=== PATIENT | male | born 1980 | race Two or more races ===

== ENCOUNTER 2018-12-01 00:53 | Emergency (ER) | payer OTHER ==
[2018-12-01 02:54] LABS: ABSOLUTE LYMPHOCYTES (AUTO) 1.1 10^3/uL (0.5-4.7); ABSOLUTE MONOCYTES (AUTO) 0.5 10^3/uL (0.1-1.4); BASOPHILS % (AUTO) 0.6 % (0-2); EOSINOPHILS % (AUTO) 0.5 % (0-6); HEMATOCRIT 40.9 % (37.9-51.0); HEMOGLOBIN 14.3 g/dL (13.5-17.0); LYMPHOCYTES % (AUTO) 12.6 % (13-45); MEAN CORPUSCULAR HEMOGLOBIN 30.7 pg (27.0-33.4); MEAN CORPUSCULAR VOLUME 88 fl (80-97); MONOCYTES % (AUTO) 5.6 % (3-13); PLATELET COUNT 157 10^3/uL (150-450); RED BLOOD COUNT 4.67 10^6/uL (4.35-5.55); RED CELL DISTRIBUTION WIDTH 13.2 % (11.5-14.0); SEGMENTED NEUTROPHILS % (AUTO) 80.7 % (42-78); TOTAL CELLS COUNTED % (AUTO) 100 %; WHITE BLOOD COUNT 8.6 10^3/uL (4.0-10.5)
[2018-12-01 03:08] LABS: APPEARANCE,URINE CLEAR; BILIRUBIN,URINE NEGATIVE (NEGATIVE); COLOR,URINE YELLOW; GLUCOSE, URINE NEGATIVE (NEGATIVE); KETONES,URINE TRACE mg/dL (NEGATIVE); LEUKOCYTE ESTERASE,URINE NEGATIVE (NEGATIVE); NITRITE,URINE NEGATIVE (NEGATIVE); PROTEIN,URINE NEGATIVE (NEGATIVE); URINE SPECIFIC GRAVITY 1.024; UROBILINOGEN,URINE NEGATIVE mg/dL (<2.0)
[2018-12-01 03:14] LABS: ALBUMIN 4.3 g/dL (3.5-5.0); ALKALINE PHOSPHATASE 48 U/L (38-126); ANION GAP 7 (5-19); ASPARTATE AMINO TRANSFERASE 29 U/L (17-59); BILIRUBIN,DIRECT 0.1 mg/dL (0.0-0.4); BILIRUBIN,TOTAL 0.8 mg/dL (0.2-1.3); BLOOD UREA NITROGEN 17 mg/dL (7-20); CALCIUM 9.7 mg/dL (8.4-10.2); CARBON DIOXIDE 30 mmol/L (22-30); CHLORIDE 103 mmol/L (98-107); GLUCOSE 129 mg/dL (75-110); POTASSIUM 3.8 mmol/L (3.6-5.0); TOTAL PROTEIN 7.7 g/dL (6.3-8.2)
[2018-12-01] MEDS ORDERED: PANTOPRAZOLE SODIUM 40 MG VIAL IV ONE (03:57)
--- NOTE | 2018-12-01 04:55 | ER Document Report ---
ED General - General Chief Complaint: Epigastric Pain Stated Complaint: RIGHT SIDE ABDOMINAL PAIN Time Seen by Provider: 12/01/18 03:28 Primary Care Provider: [facility] [NO LOCAL MD] - Follow up as needed TRAVEL OUTSIDE OF THE [place] IN LAST 30 DAYS: No - HPI Notes: This is a 38-year-old gentleman who presents today with a complaint of epigastric and slight right upper quadrant pain that started this evening. Patient describes his pain as aching and burning. Pain started shortly after dinner about 2 hours prior. Associated symptoms include nausea but no vomiting. He denies any chest pain. He denies any diarrhea constipation. He describes his symptoms as moderate. There are no obvious aggravating or relieving factors. - Related Data Allergies/Adverse Reactions: No Known Allergies Allergy (Verified 12/01/18 02:27) Past Medical History - Social History Smoking Status: Never Smoker Frequency of alcohol use: Occasional Drug Abuse: None Family History: Reviewed & Not Pertinent Patient has suicidal ideation: No Patient has homicidal ideation: No Review of Systems - Review of Systems Cardiovascular: denies: Chest pain, Palpitations Gastrointestinal: Abdominal pain, Nausea. denies: Diarrhea, Vomiting, Constipation Neurological/Psychological: denies: Headaches -: Yes All other systems reviewed and negative Physical Exam - Vital signs Vitals: Temp Pulse Resp BP Pulse Ox 98.4 F 72 16 152/92 H 98 12/01/18 01:01 12/01/18 01:01 12/01/18 01:01 12/01/18 01:01 12/01/18 01:01 - General General appearance: Appears well, Alert - Respiratory Respiratory status: No respiratory distress Chest status: Nontender Breath sounds: Normal Chest palpation: Normal - Cardiovascular Rhythm: Regular Heart sounds: Normal auscultation Murmur: No - Abdominal Inspection: Normal Distension: No distension Bowel sounds: Normal Tenderness: Tender - There is very mild epigastric and right upper quadrant tenderness. There is no guarding or rebound. There is no lower abdominal pain or tenderness. Organomegaly: No organomegaly - Extremities General upper extremity: Normal inspection, Nontender, Normal color, Normal ROM, Normal temperature General lower extremity: Normal inspection, Nontender, Normal color, Normal ROM, Normal temperature, Normal weight bearing. No: Nguyen's sign - Neurological Neuro grossly intact: Yes Cognition: Normal Orientation: AAOx4 [place] Coma Scale Eye Opening: Spontaneous Jessica Coma Scale Verbal: Oriented Jessica Coma Scale Motor: Obeys Commands [place] Coma Scale Total: 15 Speech: Normal Motor strength normal: LUE, RUE, LLE, RLE Sensory: Normal - Psychological Associated symptoms: Normal affect, Normal mood - Skin Skin Temperature: Warm Skin Moisture: Dry Skin Color: Normal Course - Re-evaluation Re-evalutation: 12/01/18 04:53 Differential diagnosis includes gastritis versus pancreatitis versus gallbladder disease versus nonspecific abdominal pain. There is no clinical suspicion for acute appendicitis. 12/01/18 05:35 Patient reverted to. Patient is doing well. Labs unremarkable. No ultrasound evidence of acute cholecystitis per my read. I will await official radiologist read. We will put him on a PPI for gastritis. - Vital Signs Vital signs: Temp Pulse Resp BP Pulse Ox 98.4 F 72 16 152/92 H 98 12/01/18 01:01 12/01/18 01:01 12/01/18 01:01 12/01/18 01:01 12/01/18 01:01 - Laboratory Result Diagrams: 12/01/18 02:40 12/01/18 02:40 Laboratory results interpreted by me: 12/01/18 12/01/18 12/01/18 02:40 02:40 02:40 Lymph % (Auto) 12.6 L Seg Neutrophils % 80.7 H Creatinine 1.27 H Glucose 129 H Urine Ketones TRACE H Discharge - Discharge Clinical Impression: Gastritis Qualifiers: Gastritis type: other gastritis Chronicity: acute Gastritis bleeding: without bleeding Qualified Code(s): K29.00 - Acute gastritis without bleeding Abdominal pain Qualifiers: Abdominal location: upper abdomen, unspecified Qualified Code(s): R10.10 - Upper abdominal pain, unspecified Cholelithiasis NOS Qualifiers: Cholelithiasis location: gallbladder Cholecystitis presence: without cholecystitis Biliary obstruction: without biliary obstruction Qualified Code(s): K80.20 - Calculus of gallbladder without cholecystitis without obstruction Condition: Good Disposition: HOME, SELF-CARE Instructions: Abdominal Pain ([facility]), Gastritis ([facility]), Gallbladder Disease ([facility]) Prescriptions: Tramadol HCl [Ultram 50 mg Tablet] 50 mg PO Q6HP PRN #20 tablet PRN Reason: Pain Scale Of 3 Esomeprazole Mag Trihydrate [Nexium] 40 mg PO DAILY 30 Days #30 capsule. [facility] [NO LOCAL MD] - Follow up as needed MARIELENA LEIJA MD [ACTIVE STAFF] - Follow up in 3-5 days
--- NOTE | 2018-12-01 05:50 | RADIOLOGY REPORT (SQ) ---
EXAM DESCRIPTION: US ABDOMEN LIMITED COMPLETED DATE/TME: 12/01/2018 03:57 CLINICAL HISTORY: 38 years, Male, RUQ pain COMPARISON: None. TECHNIQUE: Grayscale and color images of the abdomen LIMITATIONS: None. FINDINGS: The visualized portions of the pancreas and aorta appear unremarkable. The liver measures 17.1 cm. The main portal vein demonstrates normal hepatopedal flow. Cholelithiasis is noted. The gallbladder wall is at the upper limit of normal in thickness measuring 3.5 mm. No sonographic Liu sign was elicited. The common bile duct is normal in caliber measuring up to 4 mm in diameter. The right kidney measures 11.9 x 5.9 x 5.9 cm. No hydronephrosis. IMPRESSION: Cholelithiasis. copyright 2010 [employer]- All Rights Reserved
[2018-12-01 06:16] VITALS: BP 130/64
--- NOTE | 2018-12-02 00:55 | EKG REPORT ---
SEVERITY:- NORMAL ECG - SINUS RHYTHM : Confirmed by: Jai Grewal 02-Dec-2018 00:54:04
== END 2018-12-01 06:17 | disposition home or self-care (01) ==
LOC: ER 00:53
DX: K29.00 Acute gastritis without bleeding (principal); K80.20 Calculus of gallbladder without cholecystitis without obstruction; R10.10 Upper abdominal pain, unspecified; R10.13 Epigastric pain; R10.11 Right upper quadrant pain; R11.0 Nausea
CPT/HCPCS: 93005; 99284; 96374; 36415; 83690; 85025; 80053; 81001; 76705; 93010; S0164